=== PATIENT | female | born 1995 ===

== ENCOUNTER 2022-09-26 18:30 | Inpatient (IN) | payer OTHER ==
[~2022-09-26] VITALS: Wt 82.3 kg
[2022-09-26] VITALS (7 sets, daily range): BP systolic 85–145; BP diastolic 34–86; PULSE 78–123; TEMP 98.2–98.6
--- NOTE | 2022-09-26 18:25 | NUR ---
Pt transported onto unit via wheelchair, accompanied by family member. Pt has visible wet area on wheelchair. Pt oriented to LDR6 and changed into exam gown. Pt ambulated to bed for SVE, with pt consent and explanation, /high. Pt stated they "felt like pushing and pooping". Pt stated "my water broke around 1700." Amnioswab conducted, positive for AF. Pt on external monitors x2 at 1832, VS obtained. POC updated with pt. Pt verbalized understanding and agreement of POC.
--- NOTE | 2022-09-26 19:15 | NUR ---
IV to left hand, LR 1 hung, and first dose of Penicillin G given.
[2022-09-26] MEDS ORDERED: PRENATAL TABLET PO (19:31)
[2022-09-26] MEDS ORDERED: TYLENOL 500MG500 MG PO (19:32)
[2022-09-26 20:37] LABS: BASO % 0.1 % (0.0-2.0); EOS # 0.1 K/mm3 (0.0-0.7); EOS % 0.6 % (0.0-4.0); GRAN # 5.4 K/mm3 (1.4-6.5); GRAN % 61.5 % (42.2-75.2); HEMOGLOBIN 11.6 g/dl (12.5-16.0); LYMPH # 2.8 K/mm3 (1.2-3.4); LYMPH % 32.2 % (20.0-51.0); MEAN CELL VOLUME 85 fl (80.0-100.0); MEAN CORPUSCULAR HEMOGLOBIN 28 pg (27-31); MEAN CORPUSCULAR HGB CONC 33 g/dl (33.0-37.0); MEAN PLATELET VOLUME 10.6 fl (7.4-10.4); MONO # 0.5 K/mm3 (0.1-0.6); MONO % 5.3 % (1.7-9.3); PLATELET COUNT 315 K/mm3 (130-400); RED BLOOD COUNT 4.12 M/mm3 (4.10-5.30); REDCELL DISTRIBUTION WIDTH-CV 13.4 % (11.5-14.5)
[2022-09-26 20:39] LABS: HEMATOCRIT 34.9 % (37.0-47.0)
--- NOTE | 2022-09-26 21:30 | NUR ---
FHR and ctx tracing intermittently due to pt position on BB. This nurse at pt bedside palpating pt abdomen, with conesnt and explanation, attempting to readjust external monitors x2.
--- NOTE | 2022-09-26 22:00 | NUR ---
Pt on BB. FHR and ctx tracing intermittently due to pt postion. This nurse at pt bedside palpating pt abd, with consent and explanation, attempting to readjust external monitors x2.
--- NOTE | 2022-09-26 22:09 | NUR ---
[id number]: Pt off external monitors x2, OOB ambulating to utilize bathroom. 2209: Pt back on external monitors x2.
--- NOTE | 2022-09-26 22:27 | NUR ---
0207-0469: Pt off external monitors x2, ambulating to utilize bathroom. 2011: Pt back on external monitors x2. This nurse at pt bedside palpating pt abd, with consent and explanation, attempting to readjust external monitors x2. 2054: Pt on birthing ball. FHR and ctx monitors tracing intermittently due to pt position. This nurse at bedside attempting to readjust external monitors x2. 2123: Dr. Castro calls this nurse wondering if pt was getting an epidural. See physicain notification for further detail.
--- NOTE | 2022-09-26 23:30 | NUR ---
[id number]: Pt off external monitors x2, OOB ambulating to utilize bathroom. 2310: Pt back on external monitors x2. This nurse at pt bedside palpating pt abd, with pt consent and explanation, attempting to readjust external monitors x2.
[2022-09-27] VITALS (49 sets, daily range): BP systolic 100–146; BP diastolic 49–78; PULSE 68–120; TEMP 97.2–98.5
--- NOTE | 2022-09-27 | NUR ---
FHR and ctx monitors tracing intermittently due to pt position. This nurse at pt bedside palpating pt abdomen, with pt consent and explanation, attempting to readjust external monitors x2. 1130: Pt on BR in side lying release, RL. 1140: Pt on BR in side lying release, LL. 1150: Pt on BR in hands and knees position, over a BB while nurse utilizes shaking the apple tree position/method.
--- NOTE | 2022-09-27 02:00 | NUR ---
6115-1981: Pt off external monitors x2, OOB ambulating to utilize bathroom. 0154: Pt back on external monitros x2. 0156: Pt on BR, WR with PB.
--- NOTE | 2022-09-27 02:45 | NUR ---
0216: Pt puking. 0214: Pt puking. FHR and ctx tracing intermittently due to pt position. This nurse at pt bedside palpating abd, with pt consent and explanation, attempting to readjust external monitors x2.
--- NOTE | 2022-09-27 03:15 | NUR ---
0303: Penicillin G, given per EMAR. 0307: Pt puking.
--- NOTE | 2022-09-27 03:30 | NUR ---
0347-7012: Pt off external monitors x2, OOB ambulating to utilize bathroom. 0322: Pt on external monitors x2. This nurse at pt bedside palpating pt abd, with pt consent and explanation, attempting to readjust external monitors x2.
--- NOTE | 2022-09-27 04:00 | NUR ---
0350: Pt maneuvered into position for epidural placement, sitting up at the edge of the bed. 0351: Michael Urbina CRNA at pt bedside. Risk and benefits of epidural explained. Pt verbalized understanding and agreement of POC for epidural placement. 0401: TD by Michael Urbina CRNA.
--- NOTE | 2022-09-27 04:15 | NUR ---
Pt repositioned, BR and WR after epidural placement. FHR and ctx monitor tracing intermittently due to pt position. This nurse at pt bedside palpating pt abdomen, with pt consent and explanation, attempting to readjust external monitors x2.
--- NOTE | 2022-09-27 05:00 | NUR ---
0450: Montesinos inserted by this nurse. Pt tolerated procedure well. 0451: SVE, with pt consent and explanation, /-2. 0453: Pitocin at 14mu, per protocol. 0456: Pt on BR in Flying Cowgirl position, WR with PB. 0500: JACQUIE mishra.
--- NOTE | 2022-09-27 05:30 | NUR ---
0524: Pt on BR in Flying Cowgirl position, opposite of last position. 0525: Pitocin at 18mu, per protocol.
--- NOTE | 2022-09-27 05:45 | NUR ---
0536: Ephedrine dose given, per EMAR. 0540: Pitocin at 20mu, per protocol.
--- NOTE | 2022-09-27 06:15 | NUR ---
Rests in bed, alert. Let patient know that I would be back to reposition and she will get another dose of antibiotics.
--- NOTE | 2022-09-27 07:00 | NUR ---
Rests in bed, alert. Vag check done, dilated four, 90 percent effaced, minus one. Pen g 2.5 million units iv started as ordered.
--- NOTE | 2022-09-27 07:30 | NUR ---
Rests in bed, alert. 0735 Request to have tums for reflux. Tums 1000 mg given as ordered.
--- NOTE | 2022-09-27 08:35 | NUR ---
Anesthesia notified of patient uncomfortable. 0839 Anesthesia here Attempts to place epidural catheter in another place. Anesthesia unable to move the catheter, decides to replace catheter. 0848 Sits up for epidural. Straight shot given by anesthesia Gabo at 0850 Lies down after epidural. Repositioned to right side per anesthesia with peanut ball.
--- NOTE | 2022-09-27 09:30 | NUR ---
Rests in bed, alert. States feeling better. Encouraged to try and get some rest now.
--- NOTE | 2022-09-27 10:45 | NUR ---
Rests in bed peña position. Face timing a friend.
--- NOTE | 2022-09-27 11:00 | NUR ---
Rests in bed, alert. Pen g 2.5 million units iv given as ordered and per protocol. Vag check done, complete. 1110 Dr. Kwong notified of patient complete. States to start pushing and I will be there.
--- NOTE | 2022-09-27 11:20 | NUR ---
Starts pushing with contractions. Does well.
--- NOTE | 2022-09-27 11:30 | NUR ---
Continues pushing with contractions. Epidural pump empty. Anesthesia called, orders to turn pump off. 1138 Dr. Kwong called to room for delivery. 1141 Spontaneous delivery of baby girl by Dr. Kwong. 1144 Spontaneous delivery of placenta by Dr. Kwong. Pitocin started at 333cc an hour as ordered and per protocol.
--- NOTE | 2022-09-27 12:00 | NUR ---
Rests in bed, alert. Repair work done by Dr. Kwong. Bed put back together. Baby skin to skin per request.
--- NOTE | 2022-09-27 12:30 | NUR ---
Rests in bed, alert. baby with help of nursery nurse.
--- NOTE | 2022-09-27 13:00 | NUR ---
Rests in bed, alert. Visits with family. Denies any needs at this time.
--- NOTE | 2022-09-27 13:30 | NUR ---
Rests in bed, alert. Showed patient how to order her food. Family at bedside.
--- NOTE | 2022-09-27 13:45 | NUR ---
Report given to nurse Jazzy. Report given in patients room.
--- NOTE | 2022-09-27 13:47 | NUR ---
THIS WHEEL BRAIDER ASSUMES CARE OF PATIENT FROM MISHA ONEAL RN.
--- NOTE | 2022-09-27 14:37 | NUR ---
PATIENT ABLE TO MOVE AND FEEL BLE SO THIS [place] CLERK HELPED PATIENT ONTO [facility].TRANSPORTED TO BATHROOM WHERE PT VOIDED WITHOUT DIFFICULTIES.PERICARE PERFORMED, CHANGED INTO NEW GOWN, PERIPAD AND MESH PANTIES PLACED. PATIENT TRANSPORTED INTO NURSEY ON [facility] WITH NO COMPLAINTS. TRANSFERRED TO ROOM 214.
[2022-09-28 03:43] VITALS: BP 104/62; PULSE 71; TEMP 97.7
[2022-09-28 07:59] VITALS: BP 107/62; PULSE 80; TEMP 97.5
[2022-09-28] MEDS ORDERED: MOTRIN 800800 MG/TAB PO (08:25)
--- NOTE | 2022-09-28 09:39 | NUR ---
Initial visit; Warehouse Assistant offered congratulations and God's blessings to parents for the of their daughter and "Special Blessings" for baby. Parents thanked Warehouse Assistant.
[2022-09-28 16:50] VITALS: BP 117/64; PULSE 88; TEMP 97.8
[2022-09-28 20:39] VITALS: BP 103/54; PULSE 66; TEMP 97.8
[2022-09-29 08:41] VITALS: BP 117/56; PULSE 86; TEMP 97.7
== END 2022-09-29 13:55 | disposition home or self-care (01) | DRG 807 ==
LOC: LDRO 18:30 → OB 19:07 → LDR 19:07 → OB 09-27 14:33
PROVIDERS: ADMIT Obstetrics & Gynecology
PROC: 10E0XZZ Delivery of Products of Conception, External Approach (ICD-10-PCS; principal; 2022-09-27)
PROC: 0UQMXZZ Repair Vulva, External Approach (ICD-10-PCS; 2022-09-27)
PROC: 3E033VJ Introduction of Other Hormone into Peripheral Vein, Percutaneous Approach (ICD-10-PCS; 2022-09-27)
DX: O99.824 Streptococcus B carrier state complicating childbirth (principal); Z37.0 Single live birth; Z3A.39 39 weeks gestation of pregnancy; O70.0 First degree perineal laceration during delivery; Z23 Encounter for immunization
CPT/HCPCS: J2540; J2590; J2795; J7120